=== PATIENT | female | born 1980 | race Caucasian/White ===

== ENCOUNTER → 2017-11-17 | Outpatient (CLI) | payer BC ==
[~2017-11-17] MED LIST: PREN-127 PO
== END ==
LOC: LAB 15:27
PROVIDERS: ATTEND Obstetrics & Gynecology
DX: Z02.9 Encounter for administrative examinations, unspecified (principal)

== ENCOUNTER → 2017-11-17 | Outpatient (CLI) | payer BC ==
[2017-11-17 16:22] LABS: PLATELET COUNT, AUTOMATED 273 K/uL (150-450)
== END ==
LOC: LAB 15:12
PROVIDERS: ATTEND Obstetrics & Gynecology
DX: Z34.91 Encounter for supervision of normal pregnancy, unspecified, first trimester (principal)
CPT/HCPCS: 36415; 81001; 85025; 86592; 86703; 86762; 86850; 86900; 86901; 87088; 87340

== ENCOUNTER → 2017-11-27 | Outpatient (CLI) | payer BC | LOC: LAB 15:36 | PROVIDERS: ATTEND Obstetrics & Gynecology | DX: O20.0 Threatened abortion (principal) | CPT/HCPCS: 36415; 84702 ==

== ENCOUNTER → 2017-11-29 | Outpatient (CLI) | payer BC | LOC: LAB 12:40 | PROVIDERS: ATTEND Obstetrics & Gynecology | DX: O20.0 Threatened abortion (principal) | CPT/HCPCS: 36415; 84702 ==

== ENCOUNTER → 2017-12-09 | Outpatient (CLI) | payer BC | LOC: LAB 15:58 | PROVIDERS: ATTEND Obstetrics & Gynecology | DX: Z34.91 Encounter for supervision of normal pregnancy, unspecified, first trimester (principal) | CPT/HCPCS: 87491; 87591 ==

== ENCOUNTER → 2018-02-19 | Outpatient (CLI) | payer BC ==
[~2018-02-19] MED LIST changes: +FLU60SYR36 IM; +OMEP-137 PO; +PANT40TA63 PO
== END ==
LOC: LAB 09:59
PROVIDERS: ATTEND Obstetrics & Gynecology
DX: O09.90 Supervision of high risk pregnancy, unspecified, unspecified trimester (principal); O30.049 Twin pregnancy, dichorionic/diamniotic, unspecified trimester; M54.5 Low back pain; R35.0 Frequency of micturition
CPT/HCPCS: 36415; 82950; 87088

== ENCOUNTER → 2018-02-19 | Outpatient (CLI) | payer BC ==
--- NOTE | 2018-02-19 15:53 | RADIOLOGY IMAGING REPORT ---
FACILITY: [facility] [place] PATIENT NAME: Meeta Bush : 1980 MR: [id number] V: [id number] EXAM DATE: ORDERING PHYSICIAN: WILIAN ARNETT TECHNOLOGIST: Location: [facility] Patient: Meeta Bush : 1980 Visit/Account:[id number] Date of Sevice: 02/19/2018 [facility] [place] [facility] OB TRANSVAGINAL HISTORY: Dichorionic/diamniotic , 20 week anatomical survey COMPARISON: None. TECHNIQUE: Transabdominal imaging was performed for assessment of the twin fetus and maternal pelvic structures. Transvaginal imaging was not performed. FINDINGS: Intrauterine gestations: Two. Membrane Fetus A and B: Yes. Uterus: Gravid, otherwise unremarkable. Maternal adnexa/ovaries: Grossly unremarkable, ovaries not visualized.. Cervix: Grossly long and closed. FETUS A: Location/position: Fetus a is the presenting twin and is in variable breech presentation with the fet al head towards the maternal left. heart rate: 134 bpm. Amniotic fluid volume: 18.15 cm; MVP 5.57 cm. Placenta: Anterior. Gestational Parameters BPD: 5.05 cm, 86th percentile HC: 18.42 cm 65th percentile AC: 60.46 cm, 82nd percentile FL: 3.24 cm, 35th percentile Average ultrasound age (AUA): 21 weeks/ zero days Estimated age based on LMP: 20 weeks/ two days Estimated weight (EFW): 384 grams +/- 56 grams, EFW for LMP: 78th percentile Anatomic Survey: Intracranial structures, lips and palate, 4-chamber heart, ventricular outflow tracts, stomach, kidne ys, urinary bladder, spine, 3-vessel cord and cord insertion are unremarkable. Two upper and two lowe r extremities visualized. Fetus B: Location/position: Located above the fetus a in vertical breech presentation with the head towa rds the maternal left. heart rate: 147 bpm. Amniotic fluid volume: Normal; ANDREA 18.18 cm; MVP 5.62 cm. Placenta: Posterior. Gestational Parameters BPD: 4.98 cm, 80th percentile HC: 18.15 cm, 55th percentile AC: 15.63 cm, 61st percentile FL: 3.21 cm, 32nd percentile Average ultrasound age (AUA): 20 weeks/ five days Estimated age based on LMP: 20 weeks/ two days Estimated weight (EFW): 356 grams +/- 52 grams EFW for LMP: 56th percentile Anatomic Survey: Intracranial structures, lips and palate, 4-chamber heart, ventricular outflow tracts, stomach, kidne ys, urinary bladder, spine, 3-vessel cord and cord insertion are unremarkable. Two upper and two lowe r extremities visualized. IMPRESSION: Dichorionic diamniotic twins in variable presentation as described above. Estimated gestational age by measurements for twin A is 21 weeks and zero days, by LMP is 20 weeks and two days Estimated gestational age by measurements for twin B is 20 weeks and five days, LMP 20 weeks and two days Report Dictated By: Carlyn Villalba MD at 02/19/2018 3:39 PM Report E-Signed By: Carlyn Villalba MD at 02/19/2018 3:48 PM ADRIENNEN:[email or web address]
== END ==
LOC: RAD 09:53
PROVIDERS: ATTEND Obstetrics & Gynecology
DX: O30.043 Twin pregnancy, dichorionic/diamniotic, third trimester (principal); O09.92 Supervision of high risk pregnancy, unspecified, second trimester; Z3A.21 21 weeks gestation of pregnancy

== ENCOUNTER → 2018-04-15 | Outpatient (CLI) | payer BC ==
[~2018-04-15] MED LIST changes: +DIPH0.5D12 IM
[2018-04-15 16:19] LABS: PLATELET COUNT, AUTOMATED 250 K/uL (150-450)
== END ==
LOC: LAB 15:19
PROVIDERS: ATTEND Obstetrics & Gynecology
DX: O30.043 Twin pregnancy, dichorionic/diamniotic, third trimester (principal)
CPT/HCPCS: 36415; 82950; 85025

== ENCOUNTER → 2018-04-22 | Outpatient (CLI) | payer BC ==
--- NOTE | 2018-04-22 22:52 | RADIOLOGY IMAGING REPORT ---
FACILITY: [facility] - [place] PATIENT NAME: Meeta Bush : 1980 MR: [id number] V: [id number] EXAM DATE: ORDERING PHYSICIAN: WILIAN ARNETT TECHNOLOGIST: Location: [facility] Patient: Meeta Bush : 1980 Visit/Account:[id number] Date of Sevice: 04/22/2018 ultrasound: Indication: Follow-up evaluation of dichorionic/diamniotic twin . Technique: Routine imaging, with Doppler. Comparison: 02/19/2018 position and heart rate: Baby A is in a variable breech presentation. The heart rate is 155. Baby B is also in a variable breech presentation. The heart rate is 144. anatomy: Unremarkable, as visualized. Measurements, EFA, and EDC: Baby A: BPD 7.9 cm (32 weeks 0 day) Head circumference 28.6 cm (31 weeks 3 days) Abdominal circumference 25.8 cm (30 weeks 1 day) Femur length 5.5 cm (29 weeks 1 days) EFW 1485 g, 68th percentile Estimated age 30 weeks 5 days EDC 06/26/2018 Baby B: BPD 7.6 cm (30 weeks 4 days) Head circumference 28.5 cm (31 weeks 3 days) Abdominal circumference 26.0 cm (30 weeks 2 days) Femur length 5.5 cm (29 weeks 0 days) EFW 1476 g, 66th percentile Estimated age 30 weeks 3 days EDC 06/28/2018 Placenta: Baby A placenta is anterior and homogeneous. Baby B placenta is posterior and homogeneous. There are no signs of placenta previa or abruption. Cervical length: Not evaluated. Amniotic fluid: Qualitatively normal for both babies. Baby A ANDREA is 20.0 cm. Baby B ANDREA is 20.8 cm. IMPRESSION: Unremarkable twin intrauterine gestation, as detailed above. The interval growth appears normal. The EDC's are slightly ahead of the previous estimates. Report Dictated By: Soto Nicole MD at 04/22/2018 10:16 PM Report E-Signed By: Soto Nicole MD at 04/22/2018 10:48 PM WSN:[id number]
== END ==
LOC: US 01:04
PROVIDERS: ATTEND Obstetrics & Gynecology
DX: O30.043 Twin pregnancy, dichorionic/diamniotic, third trimester (principal)
CPT/HCPCS: 76815

== ENCOUNTER → 2018-05-18 | Outpatient (CLI) | payer BC ==
--- NOTE | 2018-05-18 14:47 | RADIOLOGY IMAGING REPORT ---
FACILITY: [facility] - [place] PATIENT NAME: Meeta Bush : 1980 MR: [id number] V: [id number] EXAM DATE: ORDERING PHYSICIAN: WILIAN ARNETT TECHNOLOGIST: Location: [facility] [place] Patient: Meeta Bush : 1980 Visit/Account:[id number] Date of Sevice: 05/18/2018 [facility] [place] [facility] LIIMITED HISTORY: Twins, check for growth, elevated blood pressure COMPARISON: 2018 TECHNIQUE: Transabdominal imaging was performed for assessment of the twin fetus and maternal pelvic structures. Transvaginal imaging was not performed. FINDINGS: Intrauterine gestations: Two. Membrane Fetus A and B: Yes. Uterus: Gravid, otherwise unremarkable. Maternal adnexa/ovaries: Not evaluated. Cervix: Not evaluated. FETUS A: Location/position: Cephalic. heart rate: 167 bpm. Amniotic fluid volume: MVP 9.28 Placenta: Anterior. Gestational Parameters BPD: 9 cm, 98% (the head measurements were not accurate due to position by technologist esteban strauss) HC: 32.15 cm, 92% AC: 29.61 cm, 72% FL: 6.33 cm, 34% Average ultrasound age (AUA): 35 weeks/ zero days Estimated age based on LMP: 32 weeks/ six days Estimated weight (EFW): 2298 grams +/- 336 grams, EFW for LMP: 73rd percentile SHERRIE: 07/07/2018 Anatomic Survey: Anatomic survey not performed. Fetus B: Location/position: Breech. heart rate: 150 bpm. Amniotic fluid volume:; MVP 10.3 cm. Placenta: Posterior. Gestational Parameters BPD: 9.03 cm, 98% (the head measurements are not accurate due to position by technologist bushra solares) HC: 31.18 cm, 67% AC: 28.71 cm, 47% FL: 6.3 cm, 31% Average ultrasound age (AUA): 34 weeks/ three days Estimated age based on LMP: 32 weeks/ six days Estimated weight (EFW): 2151 grams +/- 314 grams EFW for LMP: 53% SHERRIE: 07/07/2018 Anatomic Survey: Anatomic survey was not performed. IMPRESSION: Viable twin as described above. There has been expected interval growth. Period of note t he head measurements were not accurate by technologist notation due to position. The SHERRIE is now 07/07/2018 previously 06/28/2018 Report Dictated By: Carlyn Villalba MD at 05/18/2018 2:03 PM Report E-Signed By: Carlyn Villalba MD at 05/18/2018 2:40 PM [email or web address]
== END ==
LOC: RAD 10:54
PROVIDERS: ATTEND Obstetrics & Gynecology
DX: Z02.9 Encounter for administrative examinations, unspecified (principal)

== ENCOUNTER → 2018-05-28 | Outpatient (CLI) | payer BC | LOC: LAB 15:26 | PROVIDERS: ATTEND Obstetrics & Gynecology | DX: Z02.9 Encounter for administrative examinations, unspecified (principal) ==

== ENCOUNTER → 2018-05-28 | Outpatient (CLI) | payer BC | LOC: LAB 15:24 | PROVIDERS: ATTEND Obstetrics & Gynecology | DX: O16.3 Unspecified maternal hypertension, third trimester (principal) | CPT/HCPCS: 36415; 82040; 82247; 82310; 82374; 82435; 82565; 82570; 82947; 84075; 84132; 84155; 84156; 84295; 84450; 84460; 84520; 85027 ==

== ENCOUNTER → 2018-06-04 | Outpatient (CLI) | payer BC | LOC: LAB 15:55 | PROVIDERS: ATTEND Obstetrics & Gynecology | DX: Z36.85 Encounter for antenatal screening for Streptococcus B (principal) | CPT/HCPCS: 87081 ==

== ENCOUNTER 2018-06-16 05:20 | Inpatient (IN) | payer BC ==
[~2018-06-16] VITALS: Ht 147.3 cm; Wt 94.3 kg
[2018-06-16] VITALS (24 sets, daily range): BP systolic 102–129; BP diastolic 54–92; Ht 147.3 cm; Wt 94.3 kg
[~2018-06-16 05:20] MED LIST changes: +BET6I IM ONLY; -DIPH0.5D12 IM; +DIPH0.5S2 IM
[2018-06-16] MEDS ORDERED: LR(*) 1000 ML BAG 1,000 ML IV SCH (05:22)
[2018-06-16] MEDS ORDERED: ceFAZolin(*) 2GM/D5W 50ML 50 ML IVPB PRN (05:22)
[2018-06-16] MEDS ORDERED: FAMOTIDINE(*) 20MG/50ML PREMIX 50 ML IVPB PRN (05:22)
[2018-06-16] MEDS ORDERED: FLUSH 10 ML SYR IVP PRN (05:25)
[2018-06-16] MEDS ORDERED: METOCLOPRAMIDE 10 MG/2 ML SDV IVP PRN (05:25)
[2018-06-16 06:10] LABS: PLATELET COUNT, AUTOMATED 220 K/uL (150-450)
[2018-06-16] MEDS ORDERED: DIPH-911 PO (06:37)
[2018-06-16] MEDS ORDERED: OXYTOCIN 10 UNIT/ML SDV ONE ×2 (06:38→08:23)
[2018-06-16] MEDS ORDERED: MORPHINE PF 5 MG/10 ML AMP ONE (06:40)
[2018-06-16] MEDS ORDERED: ONDANSETRON 4 MG/2 ML VIAL ONE (06:41)
--- NOTE | 2018-06-16 07:35 | History & Physical ---
History of Present Illness EDC per U/S: July 07, 2018 Estimated Gestational Age: 37 Chief Complaint Scheduled History of Present Illness 38yo at 37w0d presents for scheduled for di:di twins in cephalic/breech presentation with GHTN. She reports FM. No preeclampsia symptoms. No UCx, VB. PNC by IMG. otherwise complicated by AMA. She received steroids last week. History Patient's Blood Type: A Positive Rubella Status: Immune Group B Strep Screen: Negative Obstetrical History: Primip Past Medical History: See PNR Allergies: Coded Allergies: No Known Drug Allergies (Unverified , 11/17/17) Social History: No T/E/D. Family History: FH: diabetes mellitus maternal uncle FH: heart disease paternal grandfather FH: muscular dystrophy paternal aunt Med Rec Home Meds Active Scripts Omeprazole (OMEPRAZOLE) 20 Mg Tablet.dr, 20 MG PO QDAY, #30 TAB 6 Refills Prov:WILIAN ARNETT MD 12/24/17 Reported Medications Diphenhydramine Hcl (UNISOM) 50 Mg Capsule, 50 MG PO HS PRN for SLEEP, CAPSULE 06/16/18 Vits W-Ca,Fe,Fa(<1MG) ( VITAMINS) 1 Each Tablet, 1 EACH PO DAILY, TAB 11/17/17 Review of Systems Constitutional: No Fever Neurological: No Syncope Eyes: No Vision Change Cardiovascular: No Chest Pain Respiratory: No Shortness of Breath Gastrointestinal: No Nausea, No Vomiting, No Diarrhea Genitourinary: No Dysuria Musculoskeletal: No Pain Psychiatric: No Depression, No Anxiety Exam General Exam Vital Signs Vital Signs Date Time Temp Pulse Resp B/P (MAP) Pulse Ox O2 Delivery O2 Flow Rate FiO2 06/16/18 05:42 99.2 67 20 129/83 (98) 99 Room Air General Apperance: Alert/Awake/No Acute Distress Neuro: No Gross deficits Eyes: Normal Extraocular Movement & Vison Cardiovascular: Regular Rate and Rhythm Respiratory: No Respiratory Distress, Clear to Auscultation Abdomen: Gravid - Non-Tender Musculoskeletal: No Weakness/Pain Extremities: No Cyanosis,Clubbing or Edema Integumentary: Skin Intact without Lesions or Rash Psychological: Alert & Oriented X3, Appropriate Mood & Affect Fetus FHT Category: I (For both babies) Medical Decision Making Data Points Result Diagram: 06/16/18 0557 Assessment and Plan Problems: (1) Dichorionic diamniotic twin Assessment & Plan: 38yo at 37w0d presents for scheduled for di:di twins in cephalic/breech presentation with GHTN. After discussing option of vaginal delivery, she declines. See PNR for details. Will proceed with . (2) Gestational hypertension (3) AMA (advanced maternal age) primigravida 35+ WILIAN ARNETT MD Jun 16, 2018 07:35
[2018-06-16] MEDS ORDERED: fentaNYL CITR 100 MCG/2 ML AMP ONE (07:54)
[2018-06-16] MEDS ORDERED: PHENYLEPHRINE 10 MG/1 ML VIAL ONE (08:05)
[2018-06-16] MEDS ORDERED: HYDROmorphone HCL 2 MG/ML SDV ONE (08:08)
[2018-06-16] MEDS ORDERED: MISOPROSTOL 200 MCG TAB ONE ×2 (08:12→08:27)
[2018-06-16] MEDS ORDERED: TRANEXAMIC AC 1000 MG/10ML SDV 1,000 MG in DEXTROSE 5% 50 ML BAG 50 ML IVPB ONE (08:15)
[2018-06-16] MEDS ORDERED: NS(*) 0.9% 100 ML BAG 100 ML ONE (08:20)
--- NOTE | 2018-06-16 08:53 | Post Operative Note ---
Operative Note - SAP BUSINESS ANALYST Operative Day Date: Jun 16, 2018 Physicians Surgeon: Colette Consulting Actuary: Leo Anesthesia: Spinal, Everardo Mclean Diagnosis Pre-Op Diagnosis: IUP at 37wks with di:di twins GHTN Post-Op Diagnosis: Same A: 0753hrs, 2796g, Apgars 9/9 B: 0756hrs, 2510g, Apgars 8/9 Procedure Procedure(s): PLTCD B-tapia suture Complications: Uterine atony: Given methergine IM in arm and intrauterine, pitocin 20U in IV bag and 10 U in leg, B-tapia suture, cytotec 800mcg rectally Fluids Fluids: See anesthesia record Estimated Blood Loss: 800cc WILIAN ARNETT MD Jun 16, 2018 08:53
[2018-06-16] MEDS ORDERED: OXYTOCIN 30 UNIT/D5LR 500 ML 500 ML IV PRN (08:54)
[2018-06-16] MEDS ORDERED: PROMETHAZINE 25 MG/ML 1 ML AMP IVP PRN (08:55)
[2018-06-16] MEDS ORDERED: LANOLIN OINT 7 GM TUBE TP PRN (08:55)
[2018-06-16] MEDS ORDERED: ONDANSETRON 4 MG/2 ML VIAL IV PRN ×2 (08:55→21:00)
[2018-06-16] MEDS ORDERED: ACETAMINOPHEN 325 MG TAB PO PRN (08:55)
[2018-06-16] MEDS ORDERED: MAGNESIUM HYDROXIDE* 30ML UDCP PO PRN (08:55)
[2018-06-16] MEDS: DOCUSATE CALCIUM 240 MG CAP PO SCH ×2 (09:00→21:19)
[2018-06-16] MEDS: FAMOTIDINE 20 MG TAB PO SCH ×2 (09:00→21:19)
--- NOTE | 2018-06-16 09:17 | Anesthesia OB Pre-Anes Eval ---
History of Present Illness Anesthesia Start Date: Jun 16, 2018 Anesthesia Start Time: 07:27 OB Anesthesia Diagnosis: gestational hypertension, primary c/section (Twins) Current Complication: gestational hypertention EDC: July 07, 2018 : 1 Para: 0 Pain Ratin Result Diagram: 06/16/18 0557 Height (Inches): 58.00 Weight (Pounds): 208 Past Medical History Medical History: no pertinent history, alcohol use/abuse (Occasional prior to preg.) Surgical History: other (Dental) Previous Anesthesia: general Hx Anesthesia Reactions: No Hx Family Anesthesia Reaction: No Home Meds Active Scripts Omeprazole (OMEPRAZOLE) 20 Mg Tablet.dr, 20 MG PO QDAY, #30 TAB 6 Refills Prov:WILIAN ARNETT MD 12/24/17 Reported Medications Diphenhydramine Hcl (UNISOM) 50 Mg Capsule, 50 MG PO HS PRN for SLEEP, CAPSULE 06/16/18 Vits W-Ca,Fe,Fa(<1MG) ( VITAMINS) 1 Each Tablet, 1 EACH PO DAILY, TAB 11/17/17 Allergies: Coded Allergies: No Known Drug Allergies (Unverified , 11/17/17) Anesthesia OB ROS Neurological: No migraines/headaches, No seizures, No neuropathy, No other ENT: Denies Tooth caps, Denies Loose teeth, Denies Chipped teeth, Denies Dentures, Denies Bridges, Denies Retainers, Denies Veneers, Denies Implants, Denies Tongue ring, Denies Other Pulmonary: No asthma, No smoker (pks/day/yrs), No other Airway Class: ll Cardiovascular ROS: No edema, No arrhythmia, No other GI ROS: NPO Last Solids Date: Jun 15, 2018 Last Solids Time: 18:00 ROS: No Herpes, No STD(s), No Liver Disease, No Renal Disease, No Other Endocrine ROS: No diabetes, No gestational diabetes, No thyroid disorder, No other Musculoskeletal ROS: No low back pain, No low back injury, No scoliosis, No other ASA Classification: 2 Assessment and Plan Anesthesia Plan: SAB Anesthesia Stop Day: Jun 16, 2018 Anesthesia Stop Time: 08:48 JAE BREWER CRNA Jun 16, 2018 09:17
--- NOTE | 2018-06-16 09:21 | Procedure Note ---
Anesthetic Placement Note Anesthesia Plan: SAB Permit for Anesthesia Signed: Yes Anesthesia Technique: Patient Sitting Anesthesia Prep: Chlorhexidine Interspace: L 3-4 Local Anesthetic: 1% Lidocaine, 25 Gauge Needle Amount Local - cc's: 2.5 Anesthesia Needle: 25g Pencan w/Introducer Anesthesia Attempts: 1 Cerebral Spinal Fluid: Yes, Clear Anesthesia Tray: Lot Number ([id number]), Expiration Date (08/30/2018), Reference Number ([id number]) Anesthesia Medications: Intrathecal Dose: mg Astromorph (0.25), mg Spinal Bupivicaine (10.5), Time (5165) Complications: None JAE BREWER CRNA Jun 16, 2018 09:21
[2018-06-16] MEDS ORDERED: KETOROLAC 30 MG/ML VIAL IVP SCH (09:45)
[2018-06-16] MEDS: KETOROLAC 30 MG/ML VIAL IVP SCH ×3 (10:20→22:34)
--- NOTE | 2018-06-16 10:49 | OPERATIVE REPORT 1 ---
EVENT DATE: June 16, 2018 SURGEON: Ria Alvarenga MD ANESTHESIA: Spinal by Everardo Mclean CRNA PACKING MACHINE INSPECTOR: Alden Bailey DO PREOPERATIVE DIAGNOSES 1. Intrauterine at 37 weeks with diamniotic, dichorionic twins. 2. Gestational hypertension. POSTOPERATIVE DIAGNOSES 1. Intrauterine at 37 weeks with diamniotic, dichorionic twins. 2. Gestational hypertension. 3. Delivery of two viable male infants: Infant A at 0753 hours, weighing 2796 grams or 6 pounds 2.6 ounces with Apgars of 9 at one minute and 9 at five minutes Infant B at 0756 hours, weight 2510 grams, or 5 pounds 9 ounces with Apgars at 8 at one minute and 9 at five minutes 4. Uterine atony. PROCEDURES PERFORMED 1. Primary low transverse delivery. 2. B-Long suture. COMPLICATIONS Uterine atony, requiring intramuscular Methergine in the arm and uterus, Pitocin 20 units in the IV fluid as well as 10 units intramuscular in her leg, B-Long suture, Cytotec 800 mcg rectally. IV FLUIDS See anesthesia record. ESTIMATED BLOOD LOSS 800 cc. INDICATIONS FOR PROCEDURE This patient is a 38-year-old, 1, para 0 who presents at 37 weeks 0 days for a scheduled due to di/di twins in the cephalic and breech presentation respectively with gestational hypertension. Please see the history and physical for full details. DESCRIPTION OF PROCEDURE The patient was properly identified and administered a spinal anesthetic. She was then placed in the supine position with a leftward tilt. A Casas catheter was placed to drain the bladder with return of clear fluid. The patient was then prepped and draped in usual fashion for a lower abdominal surgery. Adequate anesthesia was then confirmed. A Pfannenstiel incision was made on the lower abdomen and carried down to the level of the rectus fascia. The fascia was nicked in the midline and extended bilaterally in a blunt fashion. The rectus fascia was from the underlying rectus muscle to the infraumbilical plate. The peritoneum was then identified and entered bluntly and stretched to accommodate delivery of the infants. A bladder blade was then placed. A low transverse incision was made, revealing intact membranes of infant A. These membranes were ruptured with return of clear fluid and A's vertex was delivered easily through the uterine incision. A nuchal cord was noted and delivered around the head. The anterior shoulder delivered easily followed by the posterior shoulder. The remainder of the infant was then easily delivered. The infant had spontaneous cry and spontaneous movement of all four extremities. The infant was dried, stimulated and the oropharynx and nasopharynx were bulb suctioned. The cord was clamped x2 and cut and the infant was passed to nursing personnel in good condition. Cord blood was then obtained of A. Next, infant B was brought down with fundal pressure to the uterine incision and noted to be in the maria m breech presentation. The amniotic sac was ruptured with the return of clear fluid. B's buttocks were then delivered through the uterine incision followed by bilateral legs. The was delivered to the level of the axilla and the anterior shoulder, which was the infant's left. Arm was delivered easily. The was then rotated and the right arm was delivered easily. The vertex was then delivered without any difficulty. The had spontaneous cry and spontaneous movement of all four extremities. The infant's oropharynx and nasopharynx were bulb suctioned and the was dried and stimulated. The cord was clamped x2 and cut and B was passed to nursing personnel in good condition. Cord blood was then obtained of B. The placentas were delivered manually and passed off the table. The uterus was exteriorized and cleared of any remaining clots or debris. The infant was noted to be quite boggy at this time. Therefore, the uterine incision was rapidly closed using an 0 Vicryl in a locking fashion from one apices to the next. Once this was completely closed, aggressive uterine massage was implemented. However, there was absolutely no tone to the uterus. Therefore, in addition to the Pitocin and the IV fluid, 10 units were administered intramuscularly as well as Methergine 0.2 mg in the patient's arm. We continued to do aggressive uterine massage, after which time a second imbricating layer of 0 Monocryl was used to close the uterus. The uterus was still extremely boggy without much tone. Therefore, 0.2 mg was given intrauterine of Methergine to help firm the uterus. The uterus did show very small evidence of tone at that time. Therefore, the uterus was replaced in the abdominal cavity to see if this would help. Uterine massage was performed intra-abdominally with lack of additional tone at this time. After further evaluation, it was determined that a B-Long suture would be appropriate for this patient. Therefore, a 1-0 Chromic was initiated for a B-Long suture, passing the needle through the anterior uterine incision on the right side over the top of the fundus and into the back in a lateral fashion. The B-Long suture was then brought over the top of the uterus again and tied down through the left aspect of the incision. With Dr. Bailey's assistance, we were able to bring the uterine fundus down with a B-Long suture and this was tied down tightly. This did help with preventing further expansion of the uterus. The uterus was then replaced in the abdominal cavity. Hemostasis was assured. At this time, there was improved tone but still not excellent. Therefore, Cytotec was requested for the end of the procedure. The peritoneum was then reapproximated using a 3-0 Monocryl followed by reapproximation of the rectus muscle in the midline. Copious irrigation of the rectus muscle was performed and the muscle was noted to be hemostatic. The rectus fascia was then reapproximated using an 0 Vicryl working from one apices to the next and the subcutaneous tissue was copiously irrigated. The subcutaneous tissue was reapproximated using another 3-0 Monocryl and the skin was closed with Insorb patsy. A Primapore dressing was placed. At the end of this procedure, the uterine tone was much improved and she was having very light flow. Therefore, a pressure dressing was placed over the incision and she was transitioned to the Post-Anesthesia Care Unit. All sponge, needle and instrument counts were correct at the end of this procedure. In the Post-Anesthesia Care Unit., the light flow of lochia trickled down to normal lochia. She appears to be doing quite well and will be monitored closely. CINDI
--- NOTE | 2018-06-16 12:46 | OB/GYN Progress Note ---
OB Subjective Progress Notes Subjective Pt is feeling well. She is having no pain control issues for now. Casas in. Not yet ambulating. Tolerating some clears. No preeclampsia symptoms. OB Objective Physical Exam Vital Signs Date Time Temp Pulse Resp B/P (MAP) Pulse Ox O2 Delivery O2 Flow Rate FiO2 06/16/18 09:45 99.9 74 16 127/83 (98) 95 Nasal Cannula 1.0 General Appearance: Alert/Awake/No Acute Distress Neurological: No Gross deficits Eyes: Normal Extraocular Movement & Vison Cardiovascular: Normal Rhythm & Peripheral Pulses, Regular Rate and Rhythm Respiratory: No Respiratory Distress, Clear to Auscultation Abdomen: Fundus Firm Incision: Clean, Dry, Intact, Dressing Extremities: No Cyanosis,Clubbing or Edema Integumentary: Skin Intact without Lesions or Rash Psychological: Alert & Oriented X3, Appropriate Mood & Affect Result Diagram: 06/16/18 0557 Assessment and Plan Problems: (1) examination following delivery Assessment & Plan: POD#0 s/p PLTCD for twins and GHTN. She is doing well. She had uterine atony in surgery requiring multiple meds and B-tapia suture. Her bleeding is scant and fundus is firm. We have started NSAIDs. Will plan CBC for tomorrow. (2) Gestational hypertension Assessment & Plan: BP stable. WILIAN ARNETT MD Jun 16, 2018 12:46
[2018-06-16] MEDS: DLR(*) 1000 ML BAG 1,000 ML IV PRN ×2 (13:45→21:28)
[2018-06-16 18:20] LABS: PLATELET COUNT, AUTOMATED 164 K/uL (150-450)
[2018-06-16] MEDS ORDERED: LR(*) 1000 ML BAG 2,000 ML ONE (18:58)
[2018-06-17 03:21] VITALS: BP 107/69
[2018-06-17] MEDS: DLR(*) 1000 ML BAG 1,000 ML IV PRN (03:25)
[2018-06-17] MEDS: KETOROLAC 30 MG/ML VIAL IVP SCH (04:40)
[2018-06-17 06:40] LABS: PLATELET COUNT, AUTOMATED 182 K/uL (150-450)
[2018-06-17 07:10] VITALS: BP 109/69
[2018-06-17] MEDS: DOCUSATE CALCIUM 240 MG CAP PO SCH ×2 (09:01→21:27)
[2018-06-17] MEDS: FAMOTIDINE 20 MG TAB PO SCH ×2 (09:01→21:27)
[2018-06-17] MEDS: IBUPROFEN 800 MG TAB PO SCH ×2 (10:42→18:29)
--- NOTE | 2018-06-17 13:15 | OB/GYN Progress Note ---
OB Subjective Progress Notes Subjective The patient is doing well. She is ambulating without difficulty. She has normal lochia. She is tolerating oral without concern. She has now voided without difficulty. She denies any chest pain, shortness of breath or dizziness. She denies preeclampsia symptoms. OB Objective Physical Exam Vital Signs Date Time Temp Pulse Resp B/P (MAP) Pulse Ox O2 Delivery O2 Flow Rate FiO2 06/17/18 03:21 98.8 78 16 107/69 (82) Room Air 06/16/18 22:49 91 06/16/18 15:00 0.5 Intake and Output 06/17/18 07:00 Intake Total 6627 ml Output Total 3485 ml Balance 3142 ml Intake Oral 840 ml IV Total 5787 ml Output Urine Total 3225 ml Estimated Blood Loss 260 ml General Appearance: Alert/Awake/No Acute Distress Neurological: No Gross deficits Eyes: Normal Extraocular Movement & Vison Cardiovascular: Normal Rhythm & Peripheral Pulses, Regular Rate and Rhythm Respiratory: No Respiratory Distress, Clear to Auscultation Abdomen: Fundus Firm Incision: Clean, Dry, Intact Extremities: No Cyanosis,Clubbing or Edema Integumentary: Skin Intact without Lesions or Rash Psychological: Alert & Oriented X3, Appropriate Mood & Affect Result Diagram: 06/17/18 0631 06/17/18 0643 Assessment and Plan Problems: (1) examination following delivery Assessment & Plan: POD#1 s/p PLTCD for twins and GHTN. Doing well. Routine orders. (2) Gestational hypertension Assessment & Plan: BP stable. WILIAN ARNETT MD Jun 17, 2018 13:15
[2018-06-17] MEDS ORDERED: IBUP800T37 PO (13:16)
[2018-06-17] MEDS ORDERED: OXYC-865 PO (13:16)
[2018-06-17] MEDS: SIMETHICONE 80 MG CHEW CHEW PRN ×2 (14:09→21:27)
[2018-06-17 16:43] VITALS: BP 118/68
[2018-06-17 19:32] VITALS: BP 110/66
[2018-06-17 23:21] VITALS: BP 115/73
[2018-06-18] MEDS: IBUPROFEN 800 MG TAB PO SCH ×3 (01:49→17:06)
[2018-06-18 03:44] VITALS: BP 113/63
[2018-06-18 07:36] VITALS: BP 110/76
--- NOTE | 2018-06-18 08:14 | OB/GYN Progress Note ---
OB Subjective Progress Notes Subjective Doing well. Pain controlled with oral medications. Tolerating regular diet. Ambulating. Voiding. Normal lochia. No preeclampsia symptoms. Working on breast feeding. Had a rough night of no sleep with the babies last night. OB Objective Physical Exam Vital Signs Date Time Temp Pulse Resp B/P (MAP) Pulse Ox O2 Delivery O2 Flow Rate FiO2 06/18/18 07:36 98.5 79 16 110/76 (87) 06/18/18 03:44 91 Room Air 06/16/18 15:00 0.5 l Intake and Output 06/18/18 07:00 Intake Total 0 ml Output Total 650 ml Balance -650 ml Intake Oral 0 ml Output Urine Total 650 ml General Appearance: Alert/Awake/No Acute Distress Neurological: No Gross deficits Eyes: Normal Extraocular Movement & Vison Cardiovascular: Normal Rhythm & Peripheral Pulses, Regular Rate and Rhythm Respiratory: No Respiratory Distress, Clear to Auscultation Abdomen: Fundus Firm Incision: Clean, Dry, Intact Extremities: No Cyanosis,Clubbing or Edema Integumentary: Skin Intact without Lesions or Rash Psychological: Alert & Oriented X3, Appropriate Mood & Affect Result Diagram: 06/17/18 0631 06/17/18 0643 Assessment and Plan Problems: (1) examination following delivery Assessment & Plan: POD#2 s/p PLTCD for twins and GHTN. Doing well. Routine orders. Anticipate home tomorrow if feeding is better. (2) Gestational hypertension Assessment & Plan: BP stable. WILIAN ARNETT MD Jun 18, 2018 08:14
[2018-06-18] MEDS ORDERED: INFLUENZA VIRUS VAC 0.5ML SYR IM ONLY ONE (09:00)
[2018-06-18] MEDS ORDERED: DIPHTH/TETANUS/ACEL. PERTUSSIS IM ONLY ONE (09:00)
[2018-06-18] MEDS ORDERED: MEASLES,MUMP,RUBELLA VAC 0.5ML SUBQ ONE (09:00)
[2018-06-18] MEDS: DOCUSATE CALCIUM 240 MG CAP PO SCH ×2 (10:02→21:34)
[2018-06-18] MEDS: FAMOTIDINE 20 MG TAB PO SCH ×2 (10:02→21:34)
[2018-06-18 11:10] VITALS: BP 120/88
[2018-06-18] MEDS: SIMETHICONE 80 MG CHEW CHEW PRN (12:52)
[2018-06-18 16:05] VITALS: BP 107/71
[2018-06-18 19:37] VITALS: BP 115/73
[2018-06-18 23:00] VITALS: BP 116/77
[2018-06-19] MEDS: IBUPROFEN 800 MG TAB PO SCH ×2 (01:56→10:12)
[2018-06-19 08:45] VITALS: BP 118/78
[2018-06-19] MEDS: FAMOTIDINE 20 MG TAB PO SCH (10:12)
[2018-06-19] MEDS: DOCUSATE CALCIUM 240 MG CAP PO SCH (10:13)
--- NOTE | 2018-06-19 12:12 | OB/GYN Progress Note ---
OB Subjective Progress Notes Subjective Doing well. Pain controlled with oral medications. Tolerating regular diet. Ambulating. Voiding. Normal lochia. No preeclampsia symptoms. Her milk came in last night, so breast-feeding is going much better. OB Objective Physical Exam Vital Signs Date Time Temp Pulse Resp B/P (MAP) Pulse Ox O2 Delivery O2 Flow Rate FiO2 06/19/18 08:45 98.2 75 16 118/78 (91) Room Air 06/18/18 03:44 91 06/16/18 15:00 0.5 Intake and Output 06/19/18 07:00 Intake Total 1160 ml Balance 1160 ml Intake Oral 1160 ml General Appearance: Alert/Awake/No Acute Distress Neurological: No Gross deficits Eyes: Normal Extraocular Movement & Vison Cardiovascular: Normal Rhythm & Peripheral Pulses, Regular Rate and Rhythm Respiratory: No Respiratory Distress, Clear to Auscultation Abdomen: Soft, Non-Tender, Non-Distended, Fundus Firm Incision: Clean, Dry, Intact Extremities: No Cyanosis,Clubbing or Edema Integumentary: Skin Intact without Lesions or Rash Psychological: Alert & Oriented X3, Appropriate Mood & Affect Result Diagram: 06/17/18 0631 06/17/18 0643 Assessment and Plan Problems: (1) examination following delivery Assessment & Plan: POD#3 s/p PLTCD for twins with GHTN. Meeting milestones. Desires discharge to home today. Discussed routine expectations. Questions answered. Follow up in clinic in 1-2wks for check. (2) Gestational hypertension Assessment & Plan: BP stable. WILIAN ARNETT MD Jun 19, 2018 12:11
--- NOTE | 2018-06-19 12:12 | OB/GYN Discharge Summary ---
Discharge Summary Reason for Hosp/Final Diag: (1) examination following delivery Hospital Course & Plan: POD#3 s/p PLTCD for twins with GHTN. Meeting milestones. Desires discharge to home today. Discussed routine expectations. Questions answered. Follow up in clinic in 1-2wks for check. (2) Gestational hypertension Hospital Course & Plan: BP stable. Lates Vital Signs Vital Signs Date Time Temp Pulse Resp B/P (MAP) Pulse Ox O2 Delivery O2 Flow Rate FiO2 06/19/18 08:45 98.2 75 16 118/78 (91) Room Air 06/18/18 03:44 91 06/16/18 15:00 0.5 Weight (Pounds): 208 Result Diagram: 06/17/18 0631 06/17/1843 Condition: Improved Discharge: Home, Self [facility] Meds Active Scripts Oxycodone Hcl/Acetaminophen (PERCOCET 5-325 MG TABLET) 1 Each Tablet, 1 TAB PO Q4-6H PRN for pain, #30 TAB 0 Refills Prov:WILIAN ARNETT MD 06/17/18 Ibuprofen (IBUPROFEN) 800 Mg Tablet, 1 TAB PO Q8H PRN for pain, #30 TAB 0 Refills TAKE WITH FOOD EVERY 8 HOURS Prov:WILIAN ARNETT MD 06/17/18 Reported Medications Vits W-Ca,Fe,Fa(<1MG) ( VITAMINS) 1 Each Tablet, 1 EACH PO DAILY, TAB 11/17/17 Discontinued Reported Medications Diphenhydramine Hcl (UNISOM) 50 Mg Capsule, 50 MG PO HS PRN for SLEEP, CAPSULE 06/16/18 Discontinued Scripts Omeprazole (OMEPRAZOLE) 20 Mg Tablet.dr, 20 MG PO QDAY, #30 TAB 6 Refills Prov:WILIAN ARNETT MD 12/24/17 Follow up Referrals: [employer] [facility] [employer] - In Two Weeks @ [facility] [place] with WILIAN ARNETT MD Discharge Diet: As Tolerates Discharge Activity: No Heavy Lifting > 10lb, Pelvic Rest WILIAN ARNETT MD Jun 19, 2018 12:12
== END 2018-06-19 13:05 | disposition home or self-care (01) | DRG 787 ==
LOC: OB 05:20
PROVIDERS: ADMIT Obstetrics & Gynecology; ATTEND Obstetrics & Gynecology
PROC: 0W3R0ZZ Control Bleeding in Genitourinary Tract, Open Approach (ICD-10-PCS; 2018-06-16)
PROC: 10D00Z1 Extraction of Products of Conception, Low, Open Approach (ICD-10-PCS; principal; 2018-06-16 07:30)
DX: O30.043 Twin pregnancy, dichorionic/diamniotic, third trimester (principal); D62 Acute posthemorrhagic anemia; O13.4 Gestational [pregnancy-induced] hypertension without significant proteinuria, complicating childbirth; O75.89 Other specified complications of labor and delivery; O90.81 Anemia of the puerperium; O32.1XX2 Maternal care for breech presentation, fetus 2; O69.81X1 Labor and delivery complicated by cord around neck, without compression, fetus 1; Z3A.37 37 weeks gestation of pregnancy; Z37.2 Twins, both liveborn
CPT/HCPCS: 36415; 82040; 82247; 82310; 82374; 82435; 82565; 82947; 84075; 84132; 84155; 84295; 84450; 84460; 84520; 85025; 86703; 86850; 86900; 86901; J0690; J1170; J1885; J2270; J2370; J2405; J2590; J2765; J3010